=== PATIENT | male | born 1990 | race African-American/Black ===

== ENCOUNTER 2019-12-31 08:50 | Emergency (ER) | payer OTHER ==
[2019-12-31] MEDS ORDERED: TETRACAINE 0.5% OPHTH SOLN 2 ML BOTTLE OD ONE (09:01)
[2019-12-31] MEDS ORDERED: FLUORESCEIN NA 1 EA STRIP OD ONE (09:02)
[2019-12-31] MEDS ORDERED: FLUORESCEIN NA 1 EA STRIP ONE (09:02)
[2019-12-31] MEDS ORDERED: TETRACAINE 0.5% OPHTH SOLN 2 ML BOTTLE ONE (09:02)
[2019-12-31 09:15] VITALS: BP 162/115; PULSE 98; TEMP 98.7; BMI 43.3
--- NOTE | 2019-12-31 09:25 | PDOC ---
History of Present Illness - General Chief Complaint: Eye Problem Stated Complaint: IRRITATION RIGHT EYE 5 DAYS Time Seen by Provider: 12/31/19 08:54 History Source: Patient Exam Limitations: No Limitations - History of Present Illness Initial Comments: Eliecer is a 29 yo obese M w a hx of DJPI3SI and HTN presents to the [facility] with 5 days of worsening right eye discomfort. Reports last being well on Saturday. On Saturday, right eye became red and itchy. Over the past few days the right eye has occasionally exuded what he describes as white crusty discharge. His girlfriend had amoxicillin and polytrim lying around the house so she gave him the antibiotics to take which he has been taking at home. He states the itchiness has been getting worse and this morning symptoms spread to the left eye which was what prompted him to come into the ER for evaluation. Also reports that last night the right eye had a significant amount of pain. - He was also concerned that red/pink eyes could be a symptom of COVID so came in to get tested. Denies having any eye pain today. Denies any pain with extra ocular movements. Denies nausea, vomiting, headache, or double vision. Denies sensation of foreign body in eye. Denies photophobia. Denies fevers or chills. PCP: Dr. Osborne PSH: None reported Social Hx: Denies smoking cigarettes. Recreational marijuana usage. Denies al cohol abuse Allergies: NKA, NKDA Past History - Medical History Allergies/Adverse Reactions: Allergies Allergy/AdvReac Type Severity Reaction Status Date / Time No Known Allergies Allergy Unverified 12/31/19 08:53 Home Medications: Ambulatory Orders Amoxicillin/Potassium Clav [Augmentin 875-125 Tablet] 1 each PO BID 5 Days #10 tablet 12/31/19 Sulfamethoxazole/Trimethoprim [Bactrim Ds -] 1 tab PO BID 5 Days #10 tablet 12/31/19 COPD: No Diabetes: Yes HTN: Yes (UNTREATED FLUCTUATING BLOOD PRESSURE) - Psycho-Social/Smoking History Smoking History: Former smoker Have you smoked in the past 12 months: No If you are a former smoker, when did you quit?: 2016 Information on smoking cessation initiated: No - Substance Abuse Hx (Audit-C & DAST Scrn) How often the patient has a drink containing alcohol: 2-3 times / week Number of drinks the patient has on a typical day: 1 or 2 How often the patient has six or more drinks on one occasion: Never Score: In Men: 4 or > Positive; In Women: 3 or > Positive: 3 Screen Result (Pos requires Nsg. Audit-10AR): Negative In the last yr the pt used illegal drug/Rx for NonMed reason: No Score: Yes response is considered Positive: 0 Screen Result (Positive result requires Nsg. DAST-10): Negative Review of Systems - Review of Systems Able to Perform ROS?: Yes Comments:: CONSTITUTIONAL: Absent: fever, no chills, no fatigue EYES: Present: chemosis, injection Absent: blurry vision/double vision ENT: Absent: ear pain, no sore throat CARDIOVASCULAR: Absent: chest pain, no palpitations RESPIRATORY: Absent: cough, no SOB GI: Absent: abdominal pain, no nausea, no vomiting, no constipation, no diarrhea GENITOURINARY: Absent: dysuria, no frequency, no hematuria MUSKULOSKELETAL: Absent: back pain, no arthralgia, no myalgia SKIN: Absent: rash NEURO: Absent: headache *Physical Exam - Vital Signs Last Vital Signs Temp Pulse Resp BP Pulse Ox 98.7 F 98 H 18 162/115 H 100 12/31/19 08:52 12/31/19 08:52 12/31/19 08:52 12/31/19 08:52 12/31/19 08:52 - Physical Exam EYES: OD: 20/200 - the eye is chemotic and injected. eyelids everted with no foreign bodies identified. EOM are not painful. can identify 1-3 fingers in 4 visual vo of both eyes. upon flourescin application there is no corneal uptake. OS: 20/200 GENERAL: Well-appearing, well-nourished. No apparent distress. HEENT: Normocephalic, atraumatic. PERRL, EOM intact. CARDIOVASCULAR: Normal S1, S2. Regular rate and rhythm. PULMONARY: No evidence of respiratory distress. Lungs clear to auscultation bilaterally. No wheezing, rales or rhonchi. ABDOMEN: Soft, non-distended, non-tender. EXTREMITIES: Normal ROM in all four extremities. No gross deformities. SKIN: Warm, dry. No rash NEUROLOGICAL: No focal neurological deficits. ED Treatment Course - Medications Given in the ED: ED Medications Discontinued Medications Generic Name Dose Route Start Last Admin Trade Name Kailee PRN Reason Stop Dose Admin Fluorescein Sodium 1 ea 12/31/19 09:02 12/31/19 09:03 Fluorets - OD 12/31/19 09:03 1 ea ONCE ONE Administration Tetracaine HCl 1 drop 12/31/19 09:01 12/31/19 09:03 Pontocaine OD 12/31/19 09:02 1 drop ONCE ONE Administration Medical Decision Making - Medical Decision Making Eliecer is a 29 yo obese M w a hx of [id number] and HTN presents to the [facility] with 5 days of worsening right eye discomfort. Reports last being well on Saturday. On Saturday, right eye became red and itchy. Over the past few days the right eye has occasionally exuded what he describes as white crusty discharge. Noel is girlfriend had amoxicillin and polytrim lying around the house so she gave him the antibiotics to take which he has been taking at home. He states the itchiness has been getting worse and this morning symptoms spread to the left eye which was what prompted him to come into the ER for evaluation. Also reports that last night the right eye had a significant amount of pain. - He was also concerned that red/pink eyes could be a symptom of COVID so came in to get tested. Vital Signs Temp Pulse Resp BP Pulse Ox 98.7 F 98 H 18 162/115 H 100 12/31/19 08:52 12/31/19 08:52 12/31/19 08:52 12/31/19 08:52 12/31/19 08:52 DDx IBNLT: Corneal abrasion/ulcer, preseptal vs septal cellultis, conjunctivitis, pink eye, diabetic retinopathy Plan: flourescin stain, optho referall, abx 12/31/19 09:17 Optho consult: Spoke w Dr. Hines opthalmologist, reviewed case by him, states bactrim and augmentin are reasonable for this patient. Also stated he can evalu ate the patient if he comes into his clinic in the afternoon today or morning tomorrow. Re-assessment: I informed the patient we will be giving him Abx for preseptal cellulitis. I also told him symptoms should get better within 24 to 48 hours if this is indeed a preseptal cellulitis and if things do not improve it is extremely important for him to return to a hospital for a CT scan of the eye to ensure this is not orbital cellulitis. Patient also informed the need to see Dr. Hines this afternoon for professional opthalmological assessment and opinion. patient agreeable to follow up with Dr. Hines in the afternoon. The patient appears clinically sober, has no evidence of clinical intoxication, is A&O x4, has no sustained nystagmus, and appears to be capable and have capacity to make reasonable decisions. The patient states they are currently in the emergency department, knows who the president is, states the correct time, correct day, and correct month. The patient is ambulatory in ER and has walked around the nursing station multiple times with a straight and steady gait, and is not ataxic. Tolerating PO well, ate a sandwich and drank juice. Denies having any SI or HI. Patient states will not be driving home. I discussed the physical exam findings, ancillary test results and final diagnoses with the patient. I answered all of the patient's questions. The patient was satisfied with the care received and felt comfortable with the discharge plan and treatment plan. The patient will call their primary care physician within 24 hours to arrange follow-up and will return to the Emergency Department with any new, persistent or worsening symptoms. Dispo: Home with Optho FU this afternoon and strict return precautions Please note, this clinical encounter is taking place during a federal and state health care emergency attributable to the novel [place] Virus pandemic. The Attorney Lawyer of the Department of Health and Human Services has declared, pursuant to the Public Health Service Act 319F-3 (42 U.S.C. 247d-6d), that a covered persons activities related to medical countermeasures against COVID-19 will be immune from liability under Federal and State law. Discharge - Discharge Information Problems reviewed: Yes Clinical Impression/Diagnosis: Redundant eyelid of right eye, Preseptal cellulitis of right eye Condition: Stable Disposition: HOME - Admission No - Additional Discharge Information Prescriptions: Amoxicillin/Potassium Clav [Augmentin 875-125 Tablet] 1 each PO BID 5 Days #10 tablet Sulfamethoxazole/Trimethoprim [Bactrim Ds -] 1 tab PO BID 5 Days #10 tablet - Follow up/Referral Referrals: Grover Hines MD [Staff Physician] - - Patient Discharge Instructions Patient Printed Discharge Instructions: Conjunctivitis (Alternative Therapy), DI for Conjunctivitis, DI for Red Eye Additional Instructions: You came into the ER with a red eye. We believe you might have pre-septal cellulitis. We are sending antibiotics to your pharmacy for you to take for the next 5 days. Come back to a [facility] hospital with an opthalmologist immediately if your symptoms to not get better or if they get worse. As discussed, please follow up with Dr. Hines the opthalmologist this afternoon to evaluate your eye. You can take over the counter Tylenol or Advil as needed for pain. Take as directed on the package insert. Do not exceed the recommended dosage. You must return to the Emergency Department with any new complaints, if your symptoms persist and do not improve or if you develop any other new or worsening concerns. As discussed, please call to follow up with your Primary Care physician in 1-2 days to discuss what happened to you in the emergency room, and make sure you are being looked after and taken care of. Your emergency room visit is not complete without this follow up appointment. Please read the attached handouts for further information about your ER visit and what you should do moving forward. Thank you for coming to the [facility] ER. We hope you feel better soon! Print Language: PORTUGUESE - Post Discharge Activity
[2019-12-31] MEDS ORDERED: SULFAMETHOXAZOLE/TRIMETHOPRIM 800MG/160MG D.S. TABLET PO ONE (09:27)
[2019-12-31] MEDS ORDERED: AMOX TR/POT CLAV 875MG/125MG TABLETS (FP) PO ONE (09:27)
[2019-12-31] MEDS ORDERED: SULFAMETHOXAZOLE/TRIMETHOPRIM 800MG/160MG D.S. TABLET ONE (09:35)
[2019-12-31] MEDS ORDERED: AMOX TR/POT CLAV 875MG/125MG TABLETS (FP) ONE (09:36)
--- NOTE | 2019-12-31 09:41 | PDOC ---
Attending Attestation - Resident Resident Name: Castro Knight - ED Attending Attestation I have performed the following: I have examined & evaluated the patient, The case was reviewed & discussed with the resident, I agree w/resident's findings & plan, Exceptions are as noted - HPI HPI: 12/31/19 09:39 29 years old with past medical history significant for diabetes presents to the emergency department with 2-day history of right eye redness and swelling around the right eye. No change in vision intermittent pain has taken a eyedrop Polytrim which she had at home with no significant improvement no pain with eye movement no fever no headache no neck stiffness No travel no sick contacts Symptoms are mild to moderate persistent constant no exacerbating or alleviating factors. - Physicial Exam PE: 12/31/19 09:39 Vitals: Triage Vital signs reviewed General Appearance: No acute distress, well nourished well developed, Head: Atraumatic, Eyes: Pupils equal reactive round, extraocular movement intact injected right conjunctiva slight amount of swelling above and below upper and lower eyelids no pain with eye movement. No fluorescein uptake. Nose: Nares patent bilaterally; no nasal congestion Throat: Posterior oropharynx without erythema, mucous membranes moist, Neck: Supple; no Nucal rigidity Skin: Warm and dry, slight swelling to upper and lower eyelid Psych: Normal mood, normal affect - Medical Decision Making 12/31/19 09:40 History examination consistent with conjunctivitis However given history of diabetes and swelling to eyelid will start empirically on antibiotic for possible preseptal cellulitis. We have arranged for the patient to follow-up with ophthalmology this afternoon. He will return to ED for any severe worsening symptoms fever chills spreading infection or for any concerns. Findings, the need for follow-up and strict return instructions discussed with patient. Discharge - Discharge Information Problems reviewed: Yes Clinical Impression/Diagnosis: Redundant eyelid of right eye, Preseptal cellulitis of right eye Condition: Stable Disposition: HOME - Additional Discharge Information Prescriptions: Amoxicillin/Potassium Clav [Augmentin 875-125 Tablet] 1 each PO BID 5 Days #10 tablet Sulfamethoxazole/Trimethoprim [Bactrim Ds -] 1 tab PO BID 5 Days #10 tablet - Follow up/Referral Referrals: Grover Hines MD [Staff Physician] - - Patient Discharge Instructions Patient Printed Discharge Instructions: Conjunctivitis (Alternative Therapy), DI for Conjunctivitis, DI for Red Eye Additional Instructions: You came into the ER with a red eye. We believe you might have pre-septal cellulitis. We are sending antibiotics to your pharmacy for you to take for the next 5 days. Come back to a [facility] hospital with an opthalmologist immediately if your symptoms to not get better or if they get worse. As discussed, please follow up with Dr. Hines the opthalmologist this afternoon to evaluate your eye. You can take over the counter Tylenol or Advil as needed for pain. Take as directed on the package insert. Do not exceed the recommended dosage. You must return to the Emergency Department with any new complaints, if your symptoms persist and do not improve or if you develop any other new or worsening concerns. As discussed, please call to follow up with your Primary Care physician in 1-2 days to discuss what happened to you in the emergency room, and make sure you are being looked after and taken care of. Your emergency room visit is not complete without this follow up appointment. Please read the attached handouts for further information about your ER visit and what you should do moving forward. Thank you for coming to the [facility]. We hope you feel better soon! Print Language: UKRAINIAN - Post Discharge Activity
== END 2019-12-31 09:43 | disposition home or self-care (01) ==
LOC: FER 08:50
DX: H02.831 Dermatochalasis of right upper eyelid (principal); L03.213 Periorbital cellulitis
CPT/HCPCS: 82962; 99283-25; U0003